=== PATIENT | male | born 1945 | race Caucasian/White ===

== ENCOUNTER → 2022-10-10 | Outpatient (CLI) | payer OTHER, MEDICARE, SELFPAY ==
[2022-10-10 09:24] LABS: Absolute Lymphocyte Count 1.36 X10^3/uL (0.83-4.51); Absolute Neutrophil Count 5.4 X10^3/uL (2.0-7.7); Basophil# 0.04 X10^3/uL; Basophil% 0.5 % (0-1); Eosinophil# 0.13 X10^3/uL; Eosinophils% 1.7 % (0-5); Hematocrit 50.8 % (40-54); Hemoglobin 16.8 g/dL (13.0-16.5); Lymphocyte # 1.36 X10^3/ul (0.83-4.51); Lymphocyte % 17.5 % (19-41); Mean Corp Hgb Conc 33.1 g/dL (32-36); Mean Corpuscular Hgb 31.2 pg (27.0-32.0); Mean Corpuscular Volume 94.2 fL (80-94); Mean Platelet Vol. 8.9 fl (6.2-12.0); Monocyte# 0.83 X10^3/uL; Monocyte% 10.7 % (0-10); NRBC Flagged by Analyzer 0 % (0-5); Neutrophil # 5.37 X10^3/uL (2.7-7.7); Platelet Count 230 K/mm3 (150-450); RBC Distribution Width SD 55.8 fl (35.1-43.9); Red Blood Count 5.39 M/mm3 (4.6-6.2); White Blood Count 7.8 K/mm3 (4.4-11.0)
[2022-10-10 09:39] LABS: ALB/GLOB Ratio 1.2 RATIO (0.9-2.4); AST(SGOT) 22 U/L (15-37); Alanine Aminotransfer ALT/SGPT 24 U/L (16-61); Albumin, Serum 3.8 g/dL (3.2-5.0); Alkaline Phosphatase 53 U/L (45-117); Amylase 31 U/L (25-115); Anion Gap 3 (5-15); BUN 15 mg/dL (7-18); BUN/Creat Ratio 20.2 RATIO (10-20); Calcium,Total 8.9 mg/dL (8.5-10.1); Chloride 108 mmol/L (98-107); Creatinine, Serum 0.74 mg/dL (0.70-1.30); EST Glomerular Filtration Rate 109 mL/min (>60); Est Glom Filt Rate - Afr Amer 132 mL/min (>60); Globulin 3.3 g/dL (2.2-4.2); Glucose 107 mg/dL (74-106); Lipase 127 U/L (73-393); Potassium 3.9 mmol/L (3.5-5.1); Protein, Total 7.1 g/dL (6.4-8.2); Sodium Level 141 mmol/L (136-145)
== END | disposition home or self-care (01) ==
LOC: PAVLAB 09:14
PROVIDERS: PCP Physician Assistant; Referring Provider Surgery; Visit Provider Surgery
DX: K83.8 Other specified diseases of biliary tract (principal)
CPT/HCPCS: 36415; 80053; 82150; 83690; 85025

== ENCOUNTER → 2022-10-21 | Outpatient (CLI) | payer OTHER, MEDICARE, SELFPAY ==
--- NOTE | 2022-10-21 07:04 | MRI_ITS ---
Examination: MRI and MRCP. INDICATION: Left side pain. TECHNIQUE: Multiplanar multisequence MRI of the abdomen was obtained. 3-D postprocessing and MRCP was obtained as well. COMPARISON: CT dated September 20, 2022 FINDINGS: Within the left hepatic lobe there is a well-circumscribed 4.4 x 3.6 cm T1 hypointense and T2 hyperintense round focus within appearance suggestive of a cyst. There is intra and extrahepatic ductal dilatation. Within the common bile duct there is a round T2 hypointense filling defect measuring up to 11.0 x 19.1 mm in diameter. The gallbladder appears contracted with round filling defects consistent with cholelithiasis. The pancreas is within normal limits. There is a 2.5 x 2.3 x 2.1 cm T1 and T2 isointense round focus within the left abdomen caudal to the pancreas, possibly within the mesentery (image 13 series 6 and image 10 series 8). The adrenal glands are grossly unremarkable. There is a left renal cyst. The visualized stomach and loops of small bowel are within normal limits. There are diverticula arising from the visualized colon. There are degenerative changes of the lumbar spine. MRI/MRCP Abdomen without Contrast IMPRESSION: Choledocholithiasis. Cholelithiasis. Hepatic cyst Indeterminate 2.5 x 2.2 x 2.1 cm round soft tissue focus within the mesentery left of midline may reflect a splenule, cannot exclude an enlarged lymph node. Electronically Signed: Drea Wilhelm MD at 8:08 EDT ,
== END | disposition home or self-care (01) ==
PROVIDERS: PCP Physician Assistant; Referring Provider Surgery; Visit Provider Surgery
DX: K83.8 Other specified diseases of biliary tract (principal)
CPT/HCPCS: 74181

== ENCOUNTER 2022-10-31 13:09 | Day surgery (SDC) | payer OTHER, MEDICARE, SELFPAY ==
--- NOTE | 2022-10-31 13:30 | EKG12_ITS ---
Test Reason : PRE OP Blood Pressure : / mmHG Vent. Rate : 068 BPM Atrial Rate : 068 BPM P-R Int : 174 ms QRS Dur : 156 ms QT Int : 458 ms P-R-T Axes : 045 -78 039 degrees QTc Int : 487 ms Sinus rhythm with marked sinus arrhythmia Right bundle branch block Left anterior fascicular block Bifascicular block Abnormal ECG No previous ECGs available Confirmed by JIMBO FRENCH, DICK ([id number]), advertising editor EVELINE ARCE ([id number]) on 11/01/2022 1:25:30 PM Referred By: Murphy Rowan Confirmed By:DICK CHOI MD
[2022-10-31 13:56] VITALS: BP 129/77; PULSE 65; RESP 16; TEMP 36.2; O2SAT 95; BMI 23.4
[2022-10-31] MEDS: Lactated Ringers 1,000 ML 15 ML IV (13:59)
--- NOTE | 2022-10-31 14:20 | HP.PCM_ITS ---
History and Physical Date of Admission: 10/31/22 Intake Intake Visit Reasons:?discuss ERCP Chief Complaint: discuss ERCP Is patient in pain?: No Allergies No Known Allergies Allergy (Unverified 10/23/22 14:22) Medications NK? 10/23/22 [History] PFSH Social History?(Updated 10/10/22 @ 08:44 by Kortney Friday) Smoking Status:? Current every day smoker alcohol intake:? current substance use type:? does not use HPI HPI HPI: Patient is a 76-year-old male here for choledocholithiasis.? He was having abdominal pain which led to a CT scan which showed a possible dilation and an MRCP revealed a large stone in the common bile duct.? The patient's LFTs are normal. ROS General General: No weight change, appetite, fatigue, colon cancer, breast cancer or weakness HEENT HEENT: No difficulty swallowing, eye injury, eye surgery, swollen glands or hoarseness Endo Endocrine: No thyroid disease, diabetes mellitus, thyroid cancer, Hair loss, heat intolerance or cold intolerance Skin Skin: No rash or changing moles Breast Breast: No left breast lump, right breast lump, nipple discharge, breast pain, abnormal mammogram, abnormal US or breast enlargement Musc Musculoskeletal: No back problems, arthritis, rheumatoid arthritis, gout or joint pain Cardio Cardiovascular: No murmur, pacemaker, heart disease, atrial fibrillation, high blood pressure, heart attack, heart stent, palpitations, shortness of breat with exertion or chest pain Psych Psychiatric: No depression, anxiety or hearing voices Resp Respiratory: No shortness of breath, No sleep apnea, No cough, No COPD, No asthma, No emphysema and No wheezing Gastro Gastrointestinal: Yes abdominal pain, No nausea or vomiting, No diarrhea, No constipation, No blood in stool, No acid reflux, No hemorrhoids, No ulcers, Yes gallbladder problem and No black,tarry stools Pasquale Hematologic: No blood thinners, No blood disorders, No bleeding, No anemia and No blood clots Neuro Neurologic: No system reviewed and no additional complaints, except as documented, No as per HPI, No abnormal gait, No abnormal hearing, No abnormal movements, No abnormal speech, No behavioral changes, No burning sensations, No confusion, No convulsions, No disequilibrium, No dizziness, No localized weakness, No frequent falls, No headache(s), No lack of coordination, No loss of vision, No memory loss, No numbness, No other visual disturbances, No radicular pain, No restless legs, No sensory deficit, No syncope, No tingling, No tremor(s), No weakness and No other Exam Const General: cooperative Orientation: alert and oriented x3 HENMT Head: normal to inspection Neck Neck: normal visual inspection and full ROM Chest Chest palpation & inspection: normal inspection of the chest Resp Effort & Inspection: normal respiratory effort Auscultation: clear to auscultation bilaterally Cardio Rate: regular rate Rhythm: regular rhythm GI Inspection: non-distended Palpation: soft and nontender Skin General: no rashes or lesions noted Neuro General: patient alert and patient oriented x3 Extrem General: full ROM Psych Appearance: grossly normal Mental Status: mental status grossly normal Assessment and Plan Assessment and Plan (1) Choledocholithiasis: ?Status:?Acute ?Plan: Patient had an MRCP that showed choledocholithiasis.? I discussed ERCP with him in detail.? I discussed the risks including but not limited to bleeding, infection, perforation of the bile duct or bowel, pancreatitis.? I also discussed the possibility of placing a stent about was unable to remove the stone.? I discussed possible transfer to tertiary center if I was unable to remove the stone or place a stent.? Patient understands the risks and is when to proceed with ERCP. Murphy Rowan MD Pager: [facility] [address] [place] [address], [address] [place] [phone] Office: I have examined the patient and the H&P has been reviewed. There are no clinical changes since date of exam.
[2022-10-31] MEDS: Cefotetan 2 GM in 0.9% NS 100 ML IV (15:24)
--- NOTE | 2022-10-31 15:33 | RAD_ITS ---
HISTORY: PAIN COMPARISON: MRCP October 21, 2022. CT 09/20/2022 TECHNIQUE: A total of 2 fluoroscopic images were saved without a radiologist present. FINDINGS: Images demonstrate oval filling defect within the common bile duct on first image correlating with stone on MRCP.. Stent placement noted on second image. Total fluoroscopy time: 59 seconds Cumulative air kerma: 82.91 mGy RAD/ERCP Biliary Only IMPRESSION: Fluoroscopic assistance for ERCP. Biliary ductal dilatation with oval filling defect on initial image. Please see operative report for additional information. Electronically Signed: Francisco Epstein MD at 19:22 EDT ,
--- NOTE | 2022-10-31 16:07 | OP.ERCP_ITS ---
Patient Name: Kan Wiggins Procedure Date: 10/31/2022 2:53 PM Date of : 1945 Age: 76 Procedure: ERCP Indications: Bile duct stone(s) Providers: Murphy Rowan MD Medicines: General Anesthesia Patient Profile: This is a 76 year old male. Refer to note in patient chart for documentation of history and physical. Complications: No immediate complications. Estimated blood loss: Minimal. Procedure: Pre-Anesthesia Assessment: - Prior to the procedure, a History and Physical was performed, and patient medications and allergies were reviewed. The patient's tolerance of previous anesthesia was also reviewed. The risks and benefits of the procedure and the sedation options and risks were discussed with the patient. All questions were answered, and informed consent was obtained. Prior Anticoagulants: The patient has taken no previous anticoagulant or antiplatelet agents. After reviewing the risks and benefits, the patient was deemed in satisfactory condition to undergo the procedure. After obtaining informed consent, the scope was passed under direct vision. Throughout the procedure, the patient's blood pressure, pulse, and oxygen saturations were monitored continuously. The Duodenoscope was introduced through the mouth, and advanced to the duodenum and used to inject contrast into the bile duct. The ERCP was accomplished without difficulty. The patient tolerated the procedure well. Scope In: 3:36:20 PM Scope Out: 3:59:30 PM Total Procedure Duration Time 0 hours 23 minutes 10 seconds Findings: A 0.035 inch x 260 cm straight Dreamwire was passed into the biliary tree. The sphincterotome was passed over the guidewire and the bile duct was then deeply cannulated. Contrast was injected. I personally interpreted the bile duct images. There was brisk flow of contrast through the ducts. Image quality was excellent. The lower third of the main bile duct contained filling defect(s) thought to be a stone. Biliary sphincterotomy was made with a monofilament sphincterotome using ERBE electrocautery. There was no post-sphincterotomy bleeding. To discover objects, the biliary tree was swept with a 15 mm balloon starting at the bifurcation. No stones were removed. One stone remained. The biliary tree was swept with a basket starting at the bifurcation. Stone was unable to be removed or crushed. One 10 Fr by 5 cm plastic stent with a single external flap and a single internal flap was placed into the common bile duct. Bile flowed through the stent. The stent was in good position. The endoscope was withdrawn from the patient. Impression: - A filling defect consistent with a stone was seen on the cholangiogram. - Choledocholithiasis was found. Partial removal was accomplished with biliary sphincterotomy; a stent was inserted. - A biliary sphincterotomy was performed. - The biliary tree was swept. - The biliary tree was swept and nothing was found. - One plastic stent was placed into the common bile duct. Recommendation: - Discharge patient to home (ambulatory). - Resume previous diet. - Return to my office in 2 weeks. Procedure Code(s): --- Professional --- 72183, Endoscopic retrograde cholangiopancreatography (ERCP); with placement of endoscopic stent into biliary or pancreatic duct, including pre- and post-dilation and guide wire passage, when performed, including sphincterotomy, when performed, each stent Diagnosis Code(s): --- Professional --- K80.50, Calculus of bile duct without cholangitis or cholecystitis without obstruction R93.2, Abnormal findings on diagnostic imaging of liver and biliary tract CPT copyright 2017 [employer]. All rights reserved. The codes documented in this report are preliminary and upon chemistry physics teacher review may be revised to meet current compliance requirements. Murphy Rowan MD 10/31/2022 4:06:39 PM This report has been signed electronically. Number of Addenda: 0 Note Initiated On: 10/31/2022 2:53 PM
--- NOTE | 2022-10-31 16:07 | OP.CCLET_ITS ---
10/31/2022 Arpit Morales Re : ERCP procedure for Kan Wiggins Dear Mir This procedure was performed on October. My impressions and recommendations are as follows: Impressions : - A filling defect consistent with a stone was seen on the cholangiogram. - Choledocholithiasis was found. Partial removal was accomplished with biliary sphincterotomy; a stent was inserted. - A biliary sphincterotomy was performed. - The biliary tree was swept. - The biliary tree was swept and nothing was found. - One plastic stent was placed into the common bile duct. Recommendations : - Discharge patient to home (ambulatory). - Resume previous diet. - Return to my office in 2 weeks. My findings are described in the full procedure note, which is enclosed. If I can be of further assistance, please feel free to contact me at Doctor phone number(s): , Work: . Sincerely, Murphy oRwan MD 10/31/2022 4:06:39 PM This report has been signed electronically.
[2022-10-31 16:14] VITALS: BP 123/76; BP 129/77; PULSE 79; RESP 16; TEMP 36.3; O2SAT 96
[2022-10-31 16:30] VITALS: BP 129/77; BP 132/67; PULSE 72; RESP 16; O2SAT 94
[2022-10-31 16:36] VITALS: BP 129/77; BP 130/76; PULSE 69; RESP 16; O2SAT 94
[2022-10-31 16:52] VITALS: BP 129/77
== END 2022-10-31 17:00 | disposition home or self-care (01) ==
LOC: EN 13:13 → AC 13:13
PROVIDERS: PCP Physician Assistant; Referring Provider Surgery; Visit Provider Surgery
PROC: (CPT 43260; principal; 2022-10-31 14:10)
DX: K80.50 Calculus of bile duct without cholangitis or cholecystitis without obstruction (principal); F17.210 Nicotine dependence, cigarettes, uncomplicated
CPT/HCPCS: 43274; 74328; 76000; 93005; J7120; J2405

== ENCOUNTER 2022-11-15 06:18 | Day surgery (SDC) | payer OTHER, MEDICARE, SELFPAY ==
[2022-11-15] MEDS: Lactated Ringers 1,000 ML 15 ML IV (06:48)
[2022-11-15 06:53] VITALS: BP 123/76; PULSE 87; RESP 17; TEMP 36.6; O2SAT 95; BMI 23.1
--- NOTE | 2022-11-15 06:53 | EKG12_ITS ---
Test Reason : PRE OP Blood Pressure : / mmHG Vent. Rate : 073 BPM Atrial Rate : 073 BPM P-R Int : 180 ms QRS Dur : 162 ms QT Int : 458 ms P-R-T Axes : 038 -73 019 degrees QTc Int : 504 ms Sinus rhythm with marked sinus arrhythmia Right bundle branch block Left anterior fascicular block Bifascicular block Abnormal ECG When compared with ECG of 31-OCT-2022 13:34, No significant change was found Confirmed by ISABEL GUARDADO ([id number]), editor continuity and script EVELINE ARCE ([id number]) on 11/20/2022 1:41:13 PM Referred By: Manuel Ibarra Confirmed By:ISABEL GUARDADO
--- NOTE | 2022-11-15 06:53 | HP.PCM_ITS ---
History and Physical Date of Admission: 11/15/22 Allergies No Known Allergies Allergy (Verified 10/31/22 13:54) PFS Medical History? History of hiatal hernia History of steroid therapy Smoker Wears dentures Wears glasses Social History? Smoking Status:? Current every day smoker tobacco type: cigarettes alcohol intake:? current substance use type:? does not use HPI HPI HPI: 76-year-old gentleman.? I had an opportunity to meet him on October 10, 2022.? He was having left flank pain.? To help evaluate him on October 21, 2022 to get an MRCP on him.? That demonstrated intra and exophytic ductal dilatation with a 11 x 19.1 mm common bile duct stone.? Cholelithiasis also identified.? There is an hepatic cyst.? There is an indeterminant 2.5 x 2.2 x 2.1 cm round soft tissue focus within the mesentery left of the midline may reflect a splenule cannot exclude an isolated lymph node.? Subsequently at my request on October 31, 2022 the patient underwent an ERCP per Dr. Murphy Rowan.? Choledocholithiasis was indeed fine.? A large stone was identified.? Could not be fully removed.? A stent was left in position. When the patient initially presented to me he was complaining of the left leg pain.? Is not clear to me that the common bile duct stone is etiologic.? On CT scan the has a splenule in the mesentery I do not believe that that is the source of his discomfort either. My previous notes reflect the following. No Known Allergies Allergy (Unverified 10/10/22 08:59) [facility] Social History Smoking Status:? Current every day smoker alcohol intake:? current substance use type:? does not use HPI HPI HPI: 76-year-old gentleman who is being referred by Terence Hester PA-C for surgical consultation regarding abdominal pain and distention.? Written copy of my surgical consult recommendations will return to him.? In addition the patient has been having problems with an acute left flank pain.? Pain is said to be 9 out of 10.? At [facility] on September 20, [address] the patient had a CT scan the abdomen pelvis with contrast.? There is a cyst on the left lobe of the liver measuring 3.5 x 5 cm.? The right lobe has a 0.5 cm item too small to characterize.? The gallbladder is felt to possibly have a radiolucent stone.? The common bile duct is elevated in diameter to 1.4 cm.? There is a left adrenal nodule measuring 2.7 x 2.3 cm.? This is felt to be consistent with an adenoma.? There are atherosclerotic changes of the abdominal aorta.Diverticulosis of the descending and sigmoid colon noted.? Fat-containing umbilical hernia.? Fat- containing left inguinal hernia.? Prostate enlargement is noted.? There is posterior disc bulging at L3-4 and L4-5.? There is partially imaged lipoma in the musculature of the right hemipelvis and a lipoma in the musculature of the left gluteus myles muscle.? Subsequently on October 03, 2022 the patient had a right upper quadrant ultrasound.? A 2.6 cm stone is seen in the gallbladder.? The common bile duct measures 13 mm.? Medical renal disease is suspected.I have personally reviewed the images.? On CT the left inguinal hernia appears to conta in fat and not bowel.? The pancreatic duct does not appear to be enlarged and the pancreas self does not appear to be large.? I am not seeing a mass in the head of the pancreas.? The common bile duct is certainly dilated. The patient states that when he stands that he notices bulging in the left mid abdomen to flank area.? When he walks he walks stooped over and this can cause a sharp pain but he can resolve it by sitting.? He denies fever or chills or sweats or nausea or vomiting or jaundice or change in urine or stool color or bright red blood per rectum or melena. He has been almost a lifelong cigarette smoker and he continues to smoke at the rate at least a pack per day. He claims he has had no history of weight loss.? No history of DVT.? He denies myocardial infarction or stroke. He has never had a colonoscopy.? He denies any family history of colon cancer. When he talks about the pain he points to the left mid abdomen slightly flank area to an area of diffuse bulging and he also points to the right lower quadrant area that has some very slight bulging. ROS General General: No weight change, appetite, fatigue, colon cancer, breast cancer or weakness HEENT HEENT: No difficulty swallowing, eye injury, eye surgery, swollen glands or hoarseness Endo Endocrine: No thyroid disease, diabetes mellitus, thyroid cancer, Hair loss, heat intolerance or cold intolerance Skin Skin: No rash or changing moles Breast Breast: No left breast lump, right breast lump, nipple discharge, breast pain, abnormal mammogram, abnormal US or breast enlargement Musc Musculoskeletal: No back problems, arthritis, rheumatoid arthritis, gout or joint pain Cardio Cardiovascular: No murmur, pacemaker, heart disease, atrial fibrillation, high blood pressure, heart attack, heart stent, palpitations, shortness of breat with exertion or chest pain Psych Psychiatric: No depression, anxiety or hearing voices Resp Respiratory: No shortness of breath, No sleep apnea, No cough, No COPD, No asthma, No emphysema and No wheezing Gastro Gastrointestinal: Yes abdominal pain, No nausea or vomiting, No diarrhea, No constipation, No blood in stool, No acid reflux, No hemorrhoids, No ulcers, Yes gallbladder problem and No black,tarry stools Pasquale Hematologic: No blood thinners, No blood disorders, No bleeding, No anemia and No blood clots Neuro Neurologic: No system reviewed and no additional complaints, except as documented, No as per HPI, No abnormal gait, No abnormal hearing, No abnormal movements, No abnormal speech, No behavioral changes, No burning sensations, No confusion, No convulsions, No disequilibrium, No dizziness, No localized weakness, No frequent falls, No headache(s), No lack of coordination, No loss of vision, No memory loss, No numbness, No other visual disturbances, No radicular pain, No restless legs, No sensory deficit, No syncope, No tingling, No tremor(s), No weakness and No other Exam Const General: cooperative, comfortable and no acute distress Nutritional Appearance: average body habitus Orientation: alert and awake Other: Heavy odor of tobacco HENMT Other: Tobacco staining of his mustache Eyes General: appearance normal, both eyes and all related structures Neck Other: Kyphosis noted Chest Other: Thoracic kyphosis noted, increased anterior posterior diameter Resp Auscultation: clear to auscultation bilaterally Other: Diminished respiratory excursion, clear Cardio Rate: regular rate Rhythm: regular rhythm Other: I do not detect a cardiac murmur GI Other: Patient was examined upright and supine, slight bulging of the left mid abdomen with a slight pendulous abdomen, no focal mass, no focal tenderness, bowel sounds present unremarkable, no hepatomegaly, no tenderness.? No rebound no guarding Other: Nontender left groin hernia detected but not the area of patient concern Skin General: no rashes or lesions noted Neuro General: patient alert, patient awake and patient oriented x3 Extrem General: no calf tenderness Psych Appearance: grossly normal Assessment and Plan Assessment and Plan (1) Cholelithiasis with chronic cholecystitis: ?Status:?Chronic (2) Liver cyst: ?Status:?Acute (3) Common bile duct dilatation: ?Status:?Acute (4) Left flank pain: ?Status:?Acute (5) Inguinal hernia of left side without obstruction or gangrene: ?Status:?Acute (6) Abdominal pain: ? ? ? Orders: Orders MRCP Abdomen without Contrast? Today? K83.8 - Other specified diseases of biliary tract ? Amylase? Today? K83.8 - Other specified diseases of biliary tract ? Comprehensive Metabolic Profil? Today? K83.8 - Other specified diseases of biliary tract ? Lipase? Today? K83.8 - Other specified diseases of biliary tract ? CBC W/Diff, Automated? Today? K83.8 - Other specified diseases of biliary tract ? Plan Regarding the patient's left mid abdominal flank pain and right lower quadrant pain.? This may be related to his bulging disc disease.? Seems to be worse when he is walking and his states that he ayanna over when he walks and this is fair amount of lifting.? The patient states that simple sitting relieves the pain so this makes it less likely as being something internal.? Although the patient has a left inguinal hernia it is not this area that seems to be of concern I do not believe that the left lobe liver cyst is causing any symptomatology.? It should not require any intervention at this time. The patient has never had a colonoscopy.? Clinically he was not tender on the left side but with left abdominal pain I do believe that he should have a colonoscopy with possible biopsy or polypectomy. Regarding the patient's common bile duct dilatation there is a possibility that he has an ampullary tumor.? I do believe that we should plan on a esophagogastroduodenoscopy and that can be done at the same setting as the colonoscopy Regarding the patient's significant bile duct dilatation I am not personally I did detecting a stone either on the CT or ultrasound in the distal common bile duct.? I am not seeing a pancreatic mass.? The dilatation though is quite notable.? I do recommend that we obtain pertinent laboratory as well as an MRCP. Then we will use this information as to whether I will personally pursue the combined upper and lower endoscopy or whether I think that bile duct intervention will be required to where we might involve Dr. Valadez Friend gastroenterology. Finally the patient has sizable gallstone and I do recommend future laparo scopically cystectomy with selective cholangiograms.? I believe however that the common bile duct dilatation needs to be addressed prior to immediately proceeding to cholecystectomy. He has had an opportunity to ask and have questions answered.? We will obtain laboratory and MRCP and then provide the patient further recommendations and scheduling subsequently. I very much appreciate the kind opportunity of assisting with the surgical care ROS General General: No weight change, appetite, fatigue, colon cancer, breast cancer or weakness HEENT HEENT: No difficulty swallowing, eye injury, eye surgery, swollen glands or hoarseness Endo Endocrine: No thyroid disease, diabetes mellitus, thyroid cancer, Hair loss, heat intolerance or cold intolerance Skin Skin: No rash or changing moles Breast Breast: No left breast lump, right breast lump, nipple discharge, breast pain, abnormal mammogram, abnormal US or breast enlargement Musc Musculoskeletal: No back problems, arthritis, rheumatoid arthritis, gout or joint pain Cardio Cardiovascular: No murmur, pacemaker, heart disease, atrial fibrillation, high blood pressure, heart attack, heart stent, palpitations, shortness of breat with exertion or chest pain Psych Psychiatric: No depression, anxiety or hearing voices Resp Respiratory: No shortness of breath, No sleep apnea, No cough, No COPD, No asthma, No emphysema and No wheezing Gastro Gastrointestinal: No abdominal pain, No nausea or vomiting, No diarrhea, No constipation, No blood in stool, No acid reflux, No hemorrhoids, No ulcers, No gallbladder problem and No black,tarry stools Pasquale Hematologic: No blood thinners, No blood disorders, No bleeding, No anemia and No blood clots Neuro Neurologic: No system reviewed and no additional complaints, except as documented, No as per HPI, No abnormal gait, No abnormal hearing, No abnormal movements, No abnormal speech, No behavioral changes, No burning sensations, No confusion, No convulsions, No disequilibrium, No dizziness, No localized weakness, No frequent falls, No headache(s), No lack of coordination, No loss of vision, No memory loss, No numbness, No other visual disturbances, No radicular pain, No restless legs, No sensory deficit, No syncope, No tingling, No tremor(s), No weakness and No other Assessment and Plan Assessment and Plan (1) Cholelithiasis with chronic cholecystitis: ?Status:?Chronic (2) Choledocholithiasis: ?Status:?Acute (3) Left flank pain: ?Status:?Acute ?Plan: I am proposing for him a colonoscopy with possible biopsy or polypectomy as indicated.? He is aware of the technique, benefit, risk, alternatives.? We will try to expedite his care. I am proposing for him a laparoscopic cholecystectomy with cholangiograms.? He has a biliary stent in place.? He will need to have additional future endoscopic treatment of a very large stone. He is also aware of the technique benefit risk complication alternatives.? In the interim we will place him on continued light duty until we can solve the above issues. Copy:MARCELINA Morales M.D., F.A.C.S. Patient presents for screening colonoscopy today. He has had an opportunity to ask and have questions answered. We will proceed as noted. Manuel Ibarra M.D., F.A.C.S.
--- NOTE | 2022-11-15 07:30 | COLBX_PTH ---
PATIENT: JAZ VALENTINE LOC: EN U#:[id number] AGE/SX: 76/M ROOM: RE11/15/[address]: Dr. Manuel Ibarra MD : 1945 BED: DIS: 11/15/2022 SPEC #: [id number] RECD: 11/15/22 11:51 STATUS: BALJINDER EULOGIO #: [id number] CLARITZA: 11/15/22 07:[address]: Manuel Ibarra DEPT: SURGICAL PATHOLOGY RECD BY: Cora Chester ENTERED: 11/15/22 13:43 SP TYPE: COLON BX OTHR DR: MARCELINA Morales Tissues: A - Cecum, NOS B - Cecum, NOS C - Transverse colon D - Descending colon E - Sigmoid colon biopsy F - Sigmoid colon biopsy Procedures: Surgery Specimen Level IV HEADER OPERATION: Colonoscopy with polypectomy (MAC) PRE-OP DIAGNOSIS: Common bile duct dilatation, left flank pain, inguinal hernia of left side TISSUE SUBMITTED: A ? Cecum polyp 3 mm, B - Cecum polyp 3 mm, C ? Mid transverse colon polyp 6 mm, D ? Descending colon polyp 11 mm, E ? Sigmoid colon poly 7 mm, F ? Distal sigmoid colon polyp MICROSCOPIC DIAGNOSIS A. Cecum polyp, polypectomy: Tubular adenoma. B. Cecum polyp, polypectomy: Fragments of colonic mucosa, no pathologic diagnosis. C. Mid sigmoid colon polyp, polypectomy: Fragments of colonic mucosa with focal adenomatous changes. Fragments of fecal material. D. Descending colon polyp, polypectomy: Fragments of tubular adenoma. Hyperplastic polyp. E. Sigmoid colon polyp, polypectomy: Fragments of tubular adenoma. F. Distal sigmoid colon polyp, polypectomy. Fragments of hyperplastic polyp. SJ:agnieszka 11/18/2022 MICROSCOPIC DESCRIPTION Slides are reviewed. GROSS DESCRIPTION A - Received in fixative is one container labeled with the patient's name and designated cecum polyp 3 mm. The specimen consists of one irregular fragment of light coleman soft tissue that measures 0.4 x 0.4 x 0.1 cm. The specimen is totally submitted in one cassette. B - Received in fixative is one container labeled with the patient's name and designated cecum polyp 3 mm. The specimen consists of two irregular fragments of light coleman soft tissue that in aggregate measure 0.4 x 0.3 x 0.1 cm. The specimen is totally submitted in one cassette. C - Received in fixative is one container labeled with the patient's name and designated mid transverse colon polyp 6 mm. The specimen consists of multiple irregular fragments of light coleman soft tissue mixed with fecal material that in aggregate measure 1.5 x 1.0 x 0.1 cm. The specimen is totally submitted in one cassette. D - Received in fixative is one container labeled with the patient's name and designated descending colon polyp 11 mm. The specimen consists of multiple irregular fragments of light coleman soft tissue mixed with fecal material that in aggregate measure 2.5 x 1.0 x 0.1 cm. The specimen is totally submitted in one cassette. E - Received in fixative is one container labeled with the patient's name and designated sigmoid colon polyp 7 mm. The specimen consists of multiple irregular fragments of light coleman soft tissue that in aggregate measure 0.6 x 0.6 x 0.1 cm. The specimen is totally submitted in one cassette. F - Received in fixative is one container labeled with the patient's name and designated distal sigmoid colon polyp. The specimen consists of multiple irregular fragments of light coleman soft tissue that in aggregate measure 1.0 x 0.3 x 0.1 cm. The specimen is totally submitted in one cassette. / SJ:rg 11/15/2022 TC:1 CPT: 72593 x6
[2022-11-15 08:16] VITALS: BP 123/76; BP 92/55; PULSE 75; RESP 16; TEMP 36.2; O2SAT 94
[2022-11-15 08:21] VITALS: BP 101/53; BP 123/76; PULSE 71; RESP 16; O2SAT 94
--- NOTE | 2022-11-15 08:21 | OP.CCLET_ITS ---
11/15/2022 Arpit Morales Re : Colonoscopy procedure for Kan Wiggins Dear Mir This procedure was performed on Tuesday, November 15, 2022. My impressions and recommendations are as follows: Impressions : - Non-thrombosed internal hemorrhoids and internal hemorrhoids that prolapse with straining, but spontaneously regress to the resting position (Grade II) found on digital rectal exam. - One 3 mm polyp in the cecum, removed with a cold biopsy forceps. Resected and retrieved. - One 3 mm polyp in the cecum, removed with a cold biopsy forceps. Resected and retrieved. - One 6 mm polyp in the mid transverse colon, removed with a hot snare. Resected and retrieved. - One 6 mm polyp in the mid transverse colon, removed with a hot snare. Resected and retrieved. - One 11 mm polyp in the mid descending colon, removed with a hot snare. Resected and retrieved. Clip was placed. - One 7 mm polyp in the mid sigmoid colon, removed with a cold biopsy forceps. Resected and retrieved. - Two 3 mm polyps in the distal sigmoid colon, removed with a cold biopsy forceps. Resected and retrieved. - Diverticulosis in the entire examined colon. Recommendations : - Discharge patient to home. - Resume previous diet. - Continue present medications. - Repeat colonoscopy in 1 year for surveillance. - Telephone my office for pathology results in 1 week. My findings are described in the full procedure note, which is enclosed. If I can be of further assistance, please feel free to contact me at Doctor phone number(s): Work: . Sincerely, Manuel Ibarra MD 11/15/2022 8:20:21 AM This report has been signed electronically.
--- NOTE | 2022-11-15 08:21 | OP.COLON_ITS ---
Patient Name: Kan Wiggins Procedure Date: 11/15/2022 7:30 AM Date of : 1945 Age: 76 Procedure: Colonoscopy Indications: Screening for colorectal malignant neoplasm Providers: Manuel Ibarra MD Referring MD: Manuel Ibarra MD Medicines: See the Anesthesia note for documentation of the administered medications Patient Profile: Last Colonoscopy: none. The patient's first colonoscopy is today. Complications: No immediate complications. Procedure: Pre-Anesthesia Assessment: - Prior to the procedure, a History and Physical was performed, and patient medications and allergies were reviewed. The patient's tolerance of previous anesthesia was also reviewed. The risks and benefits of the procedure and the sedation options and risks were discussed with the patient. All questions were answered, and informed consent was obtained. Prior Anticoagulants: The patient has taken no previous anticoagulant or antiplatelet agents. ASA Grade Assessment: II - A patient with mild systemic disease. After reviewing the risks and benefits, the patient was deemed in satisfactory condition to undergo the procedure. After I obtained informed consent, the scope was passed under direct vision. Throughout the procedure, the patient's blood pressure, pulse, and oxygen saturations were monitored continuously. The colonoscope was introduced through the anus and advanced to the cecum, identified by appendiceal orifice and ileocecal valve. The colonoscopy was somewhat difficult due to multiple polyps. [Solution]. The quality of the bowel preparation was good. The ileocecal valve and the appendiceal orifice were photographed. Scope In: 7:39:30 AM Scope Withdrawal Time 0 hours 27 minutes 2 seconds Scope Out: 8:11:27 AM Total Procedure Duration Time 0 hours 31 minutes 57 seconds Findings: The digital rectal exam findings include non-thrombosed internal hemorrhoids and internal hemorrhoids that prolapse with straining, but spontaneously regress to the resting position (Grade II). Pertinent negatives include normal prostate (size, shape, and consistency). A 3 mm polyp was found in the cecum. The polyp was sessile. The polyp was removed with a cold biopsy forceps. Resection and retrieval were complete. A 3 mm polyp was found in the cecum. The polyp was sessile. The polyp was removed with a cold biopsy forceps. Resection and retrieval were complete. A 6 mm polyp was found in the mid transverse colon. The polyp was sessile. The polyp was removed with a hot snare. Resection and retrieval were complete. A 6 mm polyp was found in the mid transverse colon. The polyp was sessile. The polyp was removed with a hot snare. Resection and retrieval were complete. A 11 mm polyp was found in the mid descending colon. The polyp was sessile. The polyp was removed with a hot snare. Resection and retrieval were complete. To prevent bleeding post-intervention, one hemostatic clip was successfully placed. There was no bleeding at the end of the procedure. A 7 mm polyp was found in the mid sigmoid colon. The polyp was sessile. The polyp was removed with a cold biopsy forceps. Resection and retrieval were complete. Two sessile polyps were found in the distal sigmoid colon. The polyps were 3 mm in size. These polyps were removed with a cold biopsy forceps. Resection and retrieval were complete. Multiple diverticula were found in the entire colon. Impression: - Non-thrombosed internal hemorrhoids and internal hemorrhoids that prolapse with straining, but spontaneously regress to the resting position (Grade II) found on digital rectal exam. - One 3 mm polyp in the cecum, removed with a cold biopsy forceps. Resected and retrieved. - One 3 mm polyp in the cecum, removed with a cold biopsy forceps. Resected and retrieved. - One 6 mm polyp in the mid transverse colon, removed with a hot snare. Resected and retrieved. - One 6 mm polyp in the mid transverse colon, removed with a hot snare. Resected and retrieved. - One 11 mm polyp in the mid descending colon, removed with a hot snare. Resected and retrieved. Clip was placed. - One 7 mm polyp in the mid sigmoid colon, removed with a cold biopsy forceps. Resected and retrieved. - Two 3 mm polyps in the distal sigmoid colon, removed with a cold biopsy forceps. Resected and retrieved. - Diverticulosis in the entire examined colon. Recommendation: - Discharge patient to home. - Resume previous diet. - Continue present medications. - Repeat colonoscopy in 1 year for surveillance. - Telephone my office for pathology results in 1 week. Procedure Code(s): --- Professional --- 85410, Colonoscopy, flexible; with removal of tumor(s), polyp(s), or other lesion(s) by snare technique 92243, 59, Colonoscopy, flexible; with biopsy, single or multiple Diagnosis Code(s): --- Professional --- Z12.11, Encounter for screening for malignant neoplasm of colon K64.1, Second degree hemorrhoids D12.0, Benign neoplasm of cecum D12.3, Benign neoplasm of transverse colon (hepatic flexure or splenic flexure) D12.4, Benign neoplasm of descending colon D12.5, Benign neoplasm of sigmoid colon K57.30, Diverticulosis of large intestine without perforation or abscess without bleeding CPT copyright 2017 [employer]. All rights reserved. The codes documented in this report are preliminary and upon account analyst review may be revised to meet current compliance requirements. Manuel Ibarra MD 11/15/2022 8:20:21 AM This report has been signed electronically. Number of Addenda: 0 Note Initiated On: 11/15/2022 7:30 AM
[2022-11-15 08:25] VITALS: BP 111/77; BP 123/76; PULSE 67; RESP 16; O2SAT 95
[2022-11-15 08:30] VITALS: BP 109/65; BP 123/76; PULSE 68; RESP 16; TEMP 36.4; O2SAT 94
[2022-11-15 08:46] VITALS: BP 123/76
== END 2022-11-15 08:52 | disposition home or self-care (01) ==
LOC: EN 06:19 → AC 06:21
PROVIDERS: PCP Physician Assistant; Referring Provider Surgery; Visit Provider Surgery
PROC: 0DJD8ZZ Inspection of Lower Intestinal Tract, Via Natural or Artificial Opening Endoscopic (ICD-10-PCS; CPT 45378; principal; 2022-11-15 07:25)
DX: D12.5 Benign neoplasm of sigmoid colon (principal); K57.30 Diverticulosis of large intestine without perforation or abscess without bleeding; D12.4 Benign neoplasm of descending colon; D12.0 Benign neoplasm of cecum; K64.1 Second degree hemorrhoids; F17.210 Nicotine dependence, cigarettes, uncomplicated
CPT/HCPCS: 45380; 45385; 88305; 93005; J7120

== ENCOUNTER 2022-11-21 14:52 | Observation (INO) | payer OTHER, MEDICARE, SELFPAY ==
[2022-11-21] VITALS (14 sets, daily range): BP systolic 99–138; BP diastolic 64–84; PULSE 61–80; RESP 16–18; TEMP 36.1–36.9; O2SAT 91–99; BMI 23.2
--- NOTE | 2022-11-21 | GALL_PTH ---
PATIENT: JAZ VALENTINE LOC: MS3 U#:[id number] AGE/SX: 76/M ROOM: [facility] RE11/21/[address]: Dr. Manuel Ibarra MD : [id number] BED: 1 DIS: 11/22/2022 SPEC #: [id number] RECD: 11/21/22 16:42 STATUS: BALJINDER KRISHNAN #: [id number] CLARITZA: 11/21/22 00:[address]: Manuel Ibarra DEPT: SURGICAL PATHOLOGY RECD BY: Byron Walker ENTERED: 11/22/22 09:49 SP TYPE: REBEKA PALOMINO DR: MARCELINA Morales Tissues: Gallbladder, NOS Procedures: Surgery Specimen Level III HEADER OPERATION: Laparoscopic cholecystectomy with IOC PRE-OP DIAGNOSIS: Cholelithiasis with chronic cholecystitis, liver cyst, common bile duct dilatation, left flank pain, inguinal hernia of left side, abdominal pain TISSUE SUBMITTED: Gallbladder MICROSCOPIC DIAGNOSIS Gallbladder, cholecystectomy: Cholesterolosis, chronic cholecystitis and cholelithiasis. AM:agnieszka 11/25/2022 MICROSCOPIC DESCRIPTION Slides are reviewed. GROSS DESCRIPTION Received is one container labeled with the patient's name and designated gallbladder. The specimen consists of a gallbladder measuring 4.0 cm in length and up to 3.0 cm in diameter. The external surface is pink-coleman, smooth and glistening for the most part. Focally it is granular, hemorrhagic and contains cautery artifact. The gallbladder is distended with a yellowish, friable stone measuring 3.0 cm in greatest dimension. No bile is noted. The gallbladder wall measures up to 0.3 cm in thickness. A focal hemorrhagic area is noted at the fundus. Power House Engineer sections from the gallbladder and the cystic duct are submitted in two cassettes. / SJ:agnieszka 11/22/2022 TC:3 CPT: 80909
--- NOTE | 2022-11-21 10:46 | PCM.HP.BLA ---
History and Physical Date of Admission: 11/21/22 Visit Reasons:?Discuss? Lap Anjel Chief Complaint: DISCUSS LAP ANJEL Allergies No Known Allergies Allergy (Verified 10/31/22 13:54) PFSH Medical History? History of hiatal hernia History of steroid therapy Smoker Wears dentures Wears glasses Social History? Smoking Status:? Current every day smoker tobacco type: cigarettes alcohol intake:? current substance use type:? does not use HPI HPI HPI: 76-year-old gentleman.? I had an opportunity to meet him on October 10, 2022.? He was having left flank pain.? To help evaluate him on October 21, 2022 to get an MRCP on him.? That demonstrated intra and exophytic ductal dilatation with a 11 x 19.1 mm common bile duct stone.? Cholelithiasis also identified.? There is an hepatic cyst.? There is an indeterminant 2.5 x 2.2 x 2.1 cm round soft tissue focus within the mesentery left of the midline may reflect a splenule cannot exclude an isolated lymph node.? Subsequently at my request on October 31, 2022 the patient underwent an ERCP per Dr. Murphy Rowan.? Choledocholithiasis was indeed fine.? A large stone was identified.? Could not be fully removed.? A stent was left in position. When the patient initially presented to me he was complaining of the left leg pain.? Is not clear to me that the common bile duct stone is etiologic.? On CT scan the has a splenule in the mesentery I do not believe that that is the source of his discomfort either. My previous notes reflect the following. No Known Allergies Allergy (Unverified 10/10/22 08:59) PFSH Social History Smoking Status:? Current every day smoker alcohol intake:? current substance use type:? does not use HPI HPI HPI: 76-year-old gentleman who is being referred by Terence Hester PA-C for surgical consultation regarding abdominal pain and distention.? Written copy of my surgical consult recommendations will return to him.? In addition the patient has been having problems with an acute left flank pain.? Pain is said to be 9 out of 10.? At [facility] on September 20, 20[address] the patient had a CT scan the abdomen pelvis with contrast.? There is a cyst on the left lobe of the liver measuring 3.5 x 5 cm.? The right lobe has a 0.5 cm item too small to characterize.? The gallbladder is felt to possibly have a radiolucent stone.? The common bile duct is elevated in diameter to 1.4 cm.? There is a left adrenal nodule measuring 2.7 x 2.3 cm.? This is felt to be consistent with an adenoma.? There are atherosclerotic changes of the abdominal aorta.Diverticulosis of the descending and sigmoid colon noted.? Fat-containing umbilical hernia.? Fat-containing left inguinal hernia.? Prostate enlargement is noted.? There is posterior disc bulging at L3-4 and L4-5.? There is partially imaged lipoma in the musculature of the right hemipelvis and a lipoma in the musculature of the left gluteus myles muscle.? Subsequently on October 03, 2022 the patient had a right upper quadrant ultrasound.? A 2.6 cm stone is seen in the gallbladder.? The common bile duct measures 13 mm.? Medical renal disease is suspected.I have personally reviewed the images.? On CT the left inguinal hernia appears to contain fat and not bowel.? The pancreatic duct does not appear to be enlarged and the pancreas self does not appear to be large.? I am not seeing a mass in the head of the pancreas.? The common bile duct is certainly dilated. The patient states that when he stands that he notices bulging in the left mid abdomen to flank area.? When he walks he walks stooped over and this can cause a sharp pain but he can resolve it by sitting.? He denies fever or chills or sweats or nausea or vomiting or jaundice or change in urine or stool color or bright red blood per rectum or melena. He has been almost a lifelong cigarette smoker and he continues to smoke at the rate at least a pack per day. He claims he has had no history of weight loss.? No history of DVT.? He denies myocardial infarction or stroke. He has never had a colonoscopy.? He denies any family history of colon cancer. When he talks about the pain he points to the left mid abdomen slightly flank area to an area of diffuse bulging and he also points to the right lower quadrant area that has some very slight bulging. ROS General General: No weight change, appetite, fatigue, colon cancer, breast cancer or weakness HEENT HEENT: No difficulty swallowing, eye injury, eye surgery, swollen glands or hoarseness Endo Endocrine: No thyroid disease, diabetes mellitus, thyroid cancer, Hair loss, heat intolerance or cold intolerance Skin Skin: No rash or changing moles Breast Breast: No left breast lump, right breast lump, nipple discharge, breast pain, abnormal mammogram, abnormal US or breast enlargement Musc Musculoskeletal: No back problems, arthritis, rheumatoid arthritis, gout or joint pain Cardio Cardiovascular: No murmur, pacemaker, heart disease, atrial fibrillation, high blood pressure, heart attack, heart stent, palpitations, shortness of breat with exertion or chest pain Psych Psychiatric: No depression, anxiety or hearing voices Resp Respiratory: No shortness of breath, No sleep apnea, No cough, No COPD, No asthma, No emphysema and No wheezing Gastro Gastrointestinal: Yes abdominal pain, No nausea or vomiting, No diarrhea, No constipation, No blood in stool, No acid reflux, No hemorrhoids, No ulcers, Yes gallbladder problem and No black,tarry stools Pasquale Hematologic: No blood thinners, No blood disorders, No bleeding, No anemia and No blood clots Neuro Neurologic: No system reviewed and no additional complaints, except as documented, No as per HPI, No abnormal gait, No abnormal hearing, No abnormal movements, No abnormal speech, No behavioral changes, No burning sensations, No confusion, No convulsions, No disequilibrium, No dizziness, No localized weakness, No frequent falls, No headache(s), No lack of coordination, No loss of vision, No memory loss, No numbness, No other visual disturbances, No radicular pain, No restless legs, No sensory deficit, No syncope, No tingling, No tremor(s), No weakness and No other Exam Const General: cooperative, comfortable and no acute distress Nutritional Appearance: average body habitus Orientation: alert and awake Other: Heavy odor of tobacco HENMT Other: Tobacco staining of his mustache Eyes General: appearance normal, both eyes and all related structures Neck Other: Kyphosis noted Chest Other: Thoracic kyphosis noted, increased anterior posterior diameter Resp Auscultation: clear to auscultation bilaterally Other: Diminished respiratory excursion, clear Cardio Rate: regular rate Rhythm: regular rhythm Other: I do not detect a cardiac murmur GI Other: Patient was examined upright and supine, slight bulging of the left mid abdomen with a slight pendulous abdomen, no focal mass, no focal tenderness, bowel sounds present unremarkable, no hepatomegaly, no tenderness.? No rebound no guarding Other: Nontender left groin hernia detected but not the area of patient concern Skin General: no rashes or lesions noted Neuro General: patient alert, patient awake and patient oriented x3 Extrem General: no calf tenderness Psych Appearance: grossly normal Assessment and Plan Assessment and Plan (1) Cholelithiasis with chronic cholecystitis: ?Status:?Chronic (2) Liver cyst: ?Status:?Acute (3) Common bile duct dilatation: ?Status:?Acute (4) Left flank pain: ?Status:?Acute (5) Inguinal hernia of left side without obstruction or gangrene: ?Status:?Acute (6) Abdominal pain: The patient has had his colonoscopy. Multiple colonic polyps were identified fortunately all benign. He presents now for a laparoscopic cholecystectomy. He has a known common stone which at the moment could not be removed and Dr. Murphy Rowan placed a biliary stent. That will require additional treatment in the future. The patient's had an opportunity ask and have questions answered. We will proceed as noted. Manuel Ibarra M.D., F.A.C.S.
[2022-11-21] MEDS: Lactated Ringers 1,000 ML 15 ML IV (10:57)
[2022-11-21 11:10] LABS: Hematocrit 46.8 % (40-54); Mean Corp Hgb Conc 34.2 g/dL (32-36); Mean Corpuscular Hgb 32.3 pg (27.0-32.0); Mean Corpuscular Volume 94.4 fL (80-94); Mean Platelet Vol. 9.3 fl (6.2-12.0); Platelet Count 253 K/mm3 (150-450); RBC Distribution Width CV 15.3 % (11.6-14.6); RBC Distribution Width SD 52.8 fl (35.1-43.9); Red Blood Count 4.96 M/mm3 (4.6-6.2); White Blood Count 5.3 K/mm3 (4.4-11.0)
[2022-11-21 11:44] LABS: Anion Gap 4 (5-15); BUN 14 mg/dL (7-18); BUN/Creat Ratio 21.9 RATIO (10-20); Calcium,Total 8.6 mg/dL (8.5-10.1); Chloride 108 mmol/L (98-107); Creatinine, Serum 0.64 mg/dL (0.70-1.30); EST Glomerular Filtration Rate 130 mL/min (>60); Est Glom Filt Rate - Afr Amer 157 mL/min (>60); Estimated Creatinine Clearance 72.13 ml/min; Glucose 92 mg/dL (74-106); Sodium Level 140 mmol/L (136-145)
--- NOTE | 2022-11-21 12:28 | DCINST_ITS ---
Discharge Instructions Procedure General Surgery Diet Discharge Diet: Light diet - advance as tolerated (if you have questions about your diet instructions, please talk to you doctor.) Activity Discharge Activity: May Not Drive (for 3-5 days or while taking narcotic pain medicine.) May shower in (days): 1 Lifting Restrictions: 10 pounds Dressing / Incision Call your doctor if your incision/area has: Continuous Slow Oozing, Sudden Increased Bleeding, Increased Pain/ Swelling, Increased Redness and Foul Smelling Discharge Call your doctor if you observe: Fever of 101 or Higher Suture Line Care: Avoid Pulling/Pushing and Avoid Pinching/Bending Additional Dressing/Incision Instructions:: Change or remove dressing in 4 days. Leave steri-strips in place for 1 week. You may remove your drain dressing tomorrow and as long as the areas clean and dry you may shower pat the area dry and if need be reapply a Band-Aid to that drain site. Follow Up Care Please Follow Up With: Manuel Ibarra MD When: Call [phone] to make an appointment to be seen in about 10 days. Please also notify the office of requested appointment with Dr. Parish Rowan in approximately 6 weeks Test Results: Test results from this visit will be discussed in further detail at your follow- up appointment, if applicable. Discharge Plan Admission Primary Reason for Your Visit: Chronic cholecystitis and cholelithiasis with choledocholithiasis/stent Attending Provider: Manuel Ibarra Primary Care Provider: Terence Hester Discharge Orders/Prescriptions Prescriptions: New hydrocodone-acetaminophen 5-325 mg Tablet 1 - 2 tab PO Q4H PRN PRN (Reason: Pain Score 1-10/10) 2 Days Qty: 6 0RF Referrals / Follow Up: Terence Hester PA [Primary Care Provider] - Disposition Disposition (needs filled in before D/C Order can be placed): Home, Self Care
[2022-11-21] MEDS: Cefazolin 2 GM in 0.9% Normal Saline 100 ML IV (12:39)
--- NOTE | 2022-11-21 12:47 | RAD_ITS ---
CLINICAL HISTORY: Male, 76 years old. Biliary ductal dilatation. PROCEDURE: CHOLANGIOGRAM - intraoperative cholangiogram. FLUOROSCOPY TIME (if supplied): 38.1 seconds. Total exposure of 72.48 mGy. TECHNIQUE: Fluoroscopic guidance was provided during an intraoperative cholangiogram. 222 images were presented for documentation purposes. Findings refer to the operative report for further details. RAD/Cholangiogram/ O R,Initial IMPRESSION: Fluoroscopy provided in the OR during a intraoperative cholangiogram. Electronically Signed: Baudilio Puentes DO at 17:21 EDT ,
[2022-11-21] MEDS: Bupivacaine 0.25% 30 ML Vial (14:50)
--- NOTE | 2022-11-21 14:51 | OP.PCM_ITS ---
Report of Operation Date of Procedure: 11/21/22 Pre-Operative Diagnosis: Cholecystitis cholelithiasis choledocholithiasis Post-Operative Diagnosis: Severe chronic cholecystitis and cholelithiasis with associated choledocholithiasis and biliary stent in place Surgery/Procedure Performed:: Laparoscopic cholecystectomy with cholangiograms Description of Surgical Findings:: Timeout informed consent was obtained. 76-year-old gentleman was taken to the operating placed upon the table underwent general endotracheal ovation esthesia. Ancef 2 g were given intravenously. 0.5% Marcaine was used as a local anesthetic. Throughout the procedure a total of 30 cc was used. Skin sites were. Excised. A vertical infraumbilical incision was created holding sutures of 0 Vicryl placed varies needle inserted saline drop test performed the abdomen insufflated with CO2 to a pressure of 10 mmHg pressure. 12 mm trocar inserted. 10 mm laparoscope inserted under conversation 5 mm ports were placed in the epigastric mid abdomen right upper quadrant. Later in the case an additional right lateral upper quadrant port was placed for liver retractor. The gallbladder could not be immediately identified. The fundus of the gallbladder was completely flattened and decompressed and adherent omentum tediously of the omentum was bluntly and sharply dissected free until the gallbladder wall could actually be identified then this was traced to the fundus where it became that was on the very large completely obstructing inflamed stone with dense liver adherence. Tedious aqua dissection and blunt dissection was required. I made some progress but could not yet identify portal structures so then I did a retrograde approach. Took the dome of the gallbladder down using electrocautery significant amount inflammatory change was encountered a liver retractor was placed through the new right lateral upper quadrant port to help retain the liver and tediously the gallbladder was dissected free and doing so I had more mobility of the gallbladder was able to identify gallbladder peritoneum close to the infundibular area was able to bluntly dissect that free and then treat that with electrocautery and with the further dissection I was able to identify the cystic artery and the cystic duct. Cystic artery was clipped proximally and then transected with electrocautery. There were dense adhesions of the stone and infundibular area of the gallbladder to the liver and I had to tediously operated suction blunt dissection and fine electrocautery dissection dissect that free. The stent located within the proper hepatic duct was identified and carefully protected during this dissection. I then had the gallbladder finally freed from the liver with only the cystic duct remaining. Placed a Hem-o-shane clips on the cystic duct made an incision and retrograde milked back sludge and debris from the cystic duct. Placed a cholangiogram catheter. Fluoroscopically controlled cholangiograms were obtained demonstrated intra luminal common bile duct material I could see the stent with some difficulty I was able to get the contrast to go into the duodenum which could be visualized there was good hepatic ductal definition. No evidence of any contrast leakage. Cholangiogram catheter was removed and a Hem-o-shane clip placed on the cystic duct prior to transecting it. The gallbladder was placed in the retrieval bag. The right upper quadrant was irrigated irrigated and aspirated free of excess fluid. Fibrillar was placed in the liver bed. Through the right lateral port 15 round EVANS drain was shortened length and then placed at the subhepatic space. The drain was secured with 3-0 nylon. The abdomen sound deflate through an antiviral valve. The infraumbilical incision had to be increased inferiorly due to the size of the stone. The fascia was then approximated by first approximate the peritoneum to pleural hemostasis with a running 0 Vicryl and then the rectus fascia was approximated with an additional running 0 Vicryl's. Skin edges approximated opted for Monocryl subdermal stitches. Steri-Strips Telfa OpSite dressings applied. Sponge and instrument and needle counts were reported the surgeon to be correct. Specimens gallbladder. Drains 15 round EVANS. Blood loss 150 cc. He was taken to the recovery room in satisfactory addition without apparent complication. Because of the difficulty procedure he will be held for o bservation. Manuel Ibarra M.D., F.A.C.S. Surgeon: Manuel Ibarra Type of Anesthesia: General Anesthesiologist: Alon Bynum
[2022-11-21] MEDS: Lactated Ringers 1,000 ML 70 ML IV (17:48)
[2022-11-21] MEDS: Morphine 2 MG/ML Syringe IV (17:52)
[2022-11-21] MEDS: Acetaminophen 325 MG Tablet 650 MG PO (20:03)
[2022-11-21] MEDS: oxyCODONE 5 MG Tablet PO (21:50)
[2022-11-22] MEDS: Morphine 2 MG/ML Syringe IV (00:30)
[2022-11-22 01:08] VITALS: BP 131/72; PULSE 63; RESP 17; TEMP 36.9; O2SAT 93
[2022-11-22] MEDS: Acetaminophen 325 MG Tablet 650 MG PO (04:16)
[2022-11-22 04:53] VITALS: BP 131/72; PULSE 63; RESP 17; TEMP 36.9; O2SAT 93
--- NOTE | 2022-11-22 06:36 | PN.SURG_ITS ---
Subjective Subjective Patient doing well. He is transition to room air. He has tolerated some Jell- O. No flatus. Pain is tolerable at about 4-5. Objective Data Objective Data Vital Signs: Vital Signs Temp Pulse Resp BP Pulse Ox O2 Del Method O2 Flow Rate 98.4 F 63 17 131/72 H 93 Room Air 2 11/22/22 04:53 11/22/22 04:53 11/22/22 04:53 11/22/22 04:53 11/22/22 04:53 11/22/22 04:53 11/21/22 16:15 Oxygen Flow Rate (L/min) 2 Oxygen Delivery Method Room Air Weight: 176 lb 5.917 oz Body Mass Index (BMI) 23.2 Intake & Output: Intake and Output for Last 24 Hours 11/20/22 11/21/22 11/22/22 23:59 23:59 23:59 Intake Total 1230 / 1230 240 / 240 Output Total 554 / 554 742 / 742 Balance 676 / 676 -502 / -502 Lab / Micro Data Result Diagrams: 11/21/22 10:50 11/21/22 10:50 Labs: Laboratory Results - last 24 hr 11/21/22 10:50: WBC 5.3, RBC 4.96, Hgb 16.0, Hct 46.8, MCV 94.4 H, MCH 32.3 H, MCHC 34.2, RDW Std Deviation 52.8 H, RDW Coeff of Drew 15.3 H, Plt Count 253, MPV 9.3 11/21/22 10:50: Sodium 140, Potassium 4.0, Chloride 108 H, Carbon Dioxide 28.0, Anion Gap 4 L, BUN 14, Creatinine 0.64 L, Estim Creat Clear Calc 72.13, Est GFR (MDRD) Af Amer 157, Est GFR (MDRD) Non-Af 130, BUN/Creatinine Ratio 21.9 H, Glucose 92, Calcium 8.6 Radiography Diagnostic Testing: Radiology Impression Cholangiogram 11/21/22 12:47 IMPRESSION: Fluoroscopy provided in the OR during a intraoperative cholangiogram. Electronically Signed: Baudilio Puentes DO at 17:21 EDT Reading Location ID and State: [facility] / [place] Tel [phone], Service support , Physical Exam GI GI Narrative: Slightly distended, nontender, EVANS drain output appropriate minimal. Assessment & Plan Assessment/Plan (1) Cholelithiasis with chronic cholecystitis: PLAN: Severe chronic cholecystitis and cholelithiasis with dense adherence of the gallbladder to the liver bed successfully excised laparoscopically. Drain output appropriate for the procedure and the drain was removed today. Cholangiograms did demonstrate debris within the common bile duct around the previously placed stent. I anticipate ongoing requirement for the stent. Patient will be discharged with office follow-up with myself in future office follow-up with Dr. Parish Rowan regarding his biliary stent Manuel Ibarra M.D., F.A.C.S.
[2022-11-22 06:37] LABS: Absolute Lymphocyte Count 1.23 X10^3/uL (0.83-4.51); Absolute Neutrophil Count 6.3 X10^3/uL (2.0-7.7); Basophil# 0.02 X10^3/uL; Basophil% 0.2 % (0-1); Eosinophil# 0.02 X10^3/uL; Eosinophils% 0.2 % (0-5); Hematocrit 44.8 % (40-54); Hemoglobin 14.8 g/dL (13.0-16.5); Lymphocyte # 1.23 X10^3/ul (0.83-4.51); Lymphocyte % 14.4 % (19-41); Mean Corpuscular Hgb 31.4 pg (27.0-32.0); Mean Corpuscular Volume 94.9 fL (80-94); Mean Platelet Vol. 9.3 fl (6.2-12.0); Monocyte% 10.6 % (0-10); NRBC Flagged by Analyzer 0 % (0-5); Neutrophil # 6.31 X10^3/uL (2.7-7.7); Neutrophil % 74.1 % (47-70); Platelet Count 231 K/mm3 (150-450); RBC Distribution Width CV 15.3 % (11.6-14.6); RBC Distribution Width SD 54.2 fl (35.1-43.9); Red Blood Count 4.72 M/mm3 (4.6-6.2); White Blood Count 8.5 K/mm3 (4.4-11.0)
[2022-11-22 07:09] LABS: AST(SGOT) 97 U/L (15-37); Alanine Aminotransfer ALT/SGPT 81 U/L (16-61); Alkaline Phosphatase 52 U/L (45-117); Anion Gap 5 (5-15); BUN 10 mg/dL (7-18); BUN/Creat Ratio 14.3 RATIO (10-20); Calcium,Total 8.3 mg/dL (8.5-10.1); Chloride 106 mmol/L (98-107); EST Glomerular Filtration Rate 117 mL/min (>60); Est Glom Filt Rate - Afr Amer 141 mL/min (>60); Estimated Creatinine Clearance 72.13 ml/min; Glucose 126 mg/dL (74-106); Potassium 3.9 mmol/L (3.5-5.1); Sodium Level 138 mmol/L (136-145)
[2022-11-22 10:59] VITALS: O2SAT 93
== END 2022-11-22 11:14 | disposition home or self-care (01) ==
LOC: MS3 11-22 07:45 → SDC 11-22 10:07 → MS3 11-22 10:07
PROVIDERS: Physician Assistant; Admitting Provider Surgery; PCP Physician Assistant; Referring Provider Surgery; Visit Provider Surgery
PROC: (CPT 47610; principal; 2022-11-21 12:10)
DX: K80.64 Calculus of gallbladder and bile duct with chronic cholecystitis without obstruction (principal); I70.0 Atherosclerosis of aorta; E27.8 Other specified disorders of adrenal gland; K76.89 Other specified diseases of liver; K40.90 Unilateral inguinal hernia, without obstruction or gangrene, not specified as recurrent; F17.210 Nicotine dependence, cigarettes, uncomplicated; K42.9 Umbilical hernia without obstruction or gangrene; K57.30 Diverticulosis of large intestine without perforation or abscess without bleeding
CPT/HCPCS: 47563; 00790; 36415; 74300; 76000; 80048; 80053; 85025; 85027; 88304; 94668; 96374; 96376; 99221; 99252; J7120; G0378; G0463; J2405

== ENCOUNTER 2023-01-07 08:30 | Day surgery (SDC) | payer MEDICARE, SELFPAY ==
--- NOTE | 2023-01-07 08:41 | EKG12_ITS ---
Test Reason : PRE-OP Blood Pressure : / mmHG Vent. Rate : 070 BPM Atrial Rate : 076 BPM P-R Int : 182 ms QRS Dur : 154 ms QT Int : 454 ms P-R-T Axes : 049 -73 003 degrees QTc Int : 490 ms Sinus rhythm with Premature atrial complexes Right bundle branch block Left anterior fascicular block Bifascicular block Abnormal ECG When compared with ECG of 15-NOV-2022 07:06, Premature atrial complexes are now Present Confirmed by JIMBO FRENCH, DICK ([id number]), editorial manager EVELINE ARCE ([id number]) on 01/10/2023 8:16:59 AM Referred By: Terence Hester Confirmed By:DICK CHOI MD
--- NOTE | 2023-01-07 09:00 | RAD_ITS ---
STUDY: ERCP. REASON FOR EXAM: Male, 77 years old. ERCP WITH STENT REMOVAL -- unable to locate stent, removed stones FLUOROSCOPY TIME (if supplied): ( 3 minutes 11 seconds. ) minutes/seconds. 36.67 mGy. TECHNIQUE: An ERCP was performed by the surgeon. COMPARISON: None. FINDINGS: Dilated intra and extrahepatic biliary ducts. Multiple filling defects are seen in the common bile duct. No stent seen. RAD/ERCP Biliary Only IMPRESSION: Dilated ducts. Multiple filling defects in the common bile duct. The stent was not visualized. Electronically Signed: Samuel Damian MD at 13:05 EDT ,
[2023-01-07] MEDS: Lactated Ringers 1,000 ML 15 ML IV (09:05)
[2023-01-07 09:06] VITALS: BP 132/68; PULSE 63; RESP 16; TEMP 36.2; O2SAT 95; BMI 22.9
--- NOTE | 2023-01-07 09:39 | HP.PCM_ITS ---
HPI - General HPI Narrative JAZ VALENTINE, is a 77 M who presents for ERCP. Patient recently had ERCP with stent placement due to choledocholithiasis. Patient has no complaints at this time. He is here for stent removal and to attempt to remove the final fragments of the stone. [facility] Medical History Choledocholithiasis Common bile duct dilatation History of hiatal hernia Inguinal hernia of left side without obstruction or gangrene Left flank pain Liver cyst Smoker Wears dentures Wears glasses Home Medications ascorbic acid (vitamin C) 500 mg chewable tablet (Vitamin C) 500 mg PO DAILY 01/01/23 [History Last Taken Unknown] cholecalciferol (vitamin D3) 25 mcg (1,000 unit) tablet (Vitamin D3) 25 mcg PO DAILY 01/01/23 [History Last Taken Unknown] vitamin E 600 unit capsule 450 mg PO DAILY 01/01/23 [History Last Taken Unknown] zinc 50 mg capsule 50 mg PO DAILY 01/01/23 [History Last Taken Unknown] Allergy/AdvReac Type Severity Reaction Status Date / Time No Known Allergies Allergy Verified 01/07/23 09:05 Surgical History History of colonoscopy History of ERCP History of laparoscopic cholecystectomy Social History Smoking Status: Current every day smoker tobacco type: cigarettes alcohol intake: current substance use type: does not use Past Medical/Surgical History Planned Operation Planned Operative Procedure/s: ERCP STENT REMOVAL Previous Hospitalizations/Surgeries HX Hospitalizations: No Any Problems With Anesthesia: No You/Your Family Experience Fever (Hyperthermia) With Anes: No Cholinesterase deficiency: No Cardiovascular Hx Hypertension: No Respiratory Hx Sleep Apnea: No CPAP: No Hx Respiratory Tract Infection/Cold (presently): No Do You Snore Loudly (louder than talking or can be heard): No Do You Often Feel Tired/ Fatigued/ Sleepy Dring Daytime?: No Has Anyone Observed You Stop Breathing During Sleep?: No Result (for STOP score): Negative Smoking Status: Current every day smoker Neurological Does patient have nerve stimulator: No Miscellaneous Recent Exposure to Contagious Disease: No Allergies No Known Allergies Allergy (Verified 01/07/23 09:05) Discharge Is Pt Admitted From a Retirement, or a Alf: No After D/C, Where Do you Plan to Go: Return Home Vital Signs Vital Signs Vital Signs: 01/07/23 09:06 01/07/23 09:06 Temperature 97.2 F L Temperature Source Temporal Pulse Rate 63 Respiratory Rate 16 Respiratory Pattern Normal Blood Pressure 132/68 H Blood Pressure Mean 89 Blood Pressure Source Monitor Blood Pressure Position Semi-Fowlers Blood Pressure Location Left Arm Pulse Ox 95 Oxygen Delivery Method Room Air Weight Weight: 174 lb 2.643 oz Body Mass Index (BMI) 22.9 Physical Exam Const alert and oriented x3 HEENT normocephalic Eyes PERRL Resp normal respiratory effort and normal air movement Cardio regular rate and regular rhythm GI soft to palpation, non-tender and non-distended Extremity normal to inspection Assessment & Plan Assessment/Plan (1) Choledocholithiasis: PLAN: Patient had ERCP with stent placement a few weeks ago. He is here now for stent removal and to attempt to remove the remainder of the stone. If I am able to remove the stone fragments but I will not place a new stent but if I was unable to remove the entirety of the stone I will place a new stent and have him see Dr. Moore for lithotripsy. Murphy Rowan MD Pager: [facility] [address] [place] [address], [address] [place] [address] Office: Surgery Risks - Colonoscopy Risks Include but are not Limited To: Risks include but are not limited to: Bleeding, perforation requiring further surgery, inability to complete colonoscopy requiring barium enema.
--- NOTE | 2023-01-07 10:36 | OP.ERCP_ITS ---
Patient Name: Kan Wiggins Procedure Date: 01/07/2023 9:50 AM Date of : 1945 Age: 77 Procedure: ERCP Indications: Common bile duct stone(s) Providers: Murphy Rowan MD Referring MD: Murphy Rowan MD Medicines: General Anesthesia Patient Profile: This is a 77 year old male. Refer to note in patient chart for documentation of history and physical. Complications: No immediate complications. Estimated blood loss: Minimal. Procedure: Pre-Anesthesia Assessment: - Prior to the procedure, a History and Physical was performed, and patient medications and allergies were reviewed. The patient's tolerance of previous anesthesia was also reviewed. The risks and benefits of the procedure and the sedation options and risks were discussed with the patient. All questions were answered, and informed consent was obtained. Prior Anticoagulants: The patient has taken no previous anticoagulant or antiplatelet agents. After reviewing the risks and benefits, the patient was deemed in satisfactory condition to undergo the procedure. After obtaining informed consent, the scope was passed under direct vision. Throughout the procedure, the patient's blood pressure, pulse, and oxygen saturations were monitored continuously. The Duodenoscope was introduced through the mouth, and advanced to the duodenum and used to inject contrast into the bile duct. The ERCP was accomplished without difficulty. The patient tolerated the procedure well. Scope In: 10:10:08 AM Scope Out: 10:26:31 AM Total Procedure Duration Time 0 hours 16 minutes 23 seconds Findings: The stent was not present in the bile duct. A 0.035 inch x 260 cm straight Dreamwire was passed into the biliary tree. The sphincterotome was passed over the guidewire and the bile duct was then deeply cannulated. Contrast was injected. The lower third of the main bile duct contained filling defect(s) thought to be a stone. The biliary tree was swept with a 15 mm balloon and basket starting at the bifurcation. All stones were removed. Impression: - A filling defect consistent with a stone was seen on the cholangiogram. - Choledocholithiasis was found. Complete removal was accomplished by balloon extraction. - The biliary tree was swept. Recommendation: - Discharge patient to home. - Resume previous diet. - Continue present medications. Procedure Code(s): --- Professional --- 15216, Endoscopic retrograde cholangiopancreatography (ERCP); with removal of calculi/debris from biliary/pancreatic duct(s) Diagnosis Code(s): --- Professional --- K80.50, Calculus of bile duct without cholangitis or cholecystitis without obstruction R93.2, Abnormal findings on diagnostic imaging of liver and biliary tract CPT copyright 2017 [employer]. All rights reserved. The codes documented in this report are preliminary and upon brick dropper review may be revised to meet current compliance requirements. Murphy Rowan MD 01/07/2023 10:36:15 AM This report has been signed electronically. Number of Addenda: 0 Note Initiated On: 01/07/2023 9:50 AM
--- NOTE | 2023-01-07 10:37 | OP.CCLET_ITS ---
01/07/2023 Arpit Morales Re : ERCP procedure for Kan Wiggins Dear Mir This procedure was performed on Saturday, January 07, 2023. My impressions and recommendations are as follows: Impressions : - A filling defect consistent with a stone was seen on the cholangiogram. - Choledocholithiasis was found. Complete removal was accomplished by balloon extraction. - The biliary tree was swept. Recommendations : - Discharge patient to home. - Resume previous diet. - Continue present medications. My findings are described in the full procedure note, which is enclosed. If I can be of further assistance, please feel free to contact me at Doctor phone number(s): , Work: . Sincerely, Murphy Rowan MD 01/07/2023 10:36:15 AM This report has been signed electronically.
[2023-01-07 10:42] VITALS: BP 132/68; PULSE 84; RESP 16; TEMP 35.8; O2SAT 97
[2023-01-07 10:45] VITALS: BP 132/68; BP 138/76; PULSE 78; RESP 16; O2SAT 96
[2023-01-07 11:00] VITALS: BP 132/68; BP 137/75; PULSE 67; RESP 16; O2SAT 97
[2023-01-07 11:01] VITALS: BP 132/68; BP 146/72; PULSE 70; RESP 16; TEMP 35.7; O2SAT 95
--- NOTE | 2023-01-07 11:20 | RAD_ITS ---
STUDY: X-RAY - ABDOMEN/PELVIS REASON FOR EXAM: Male, 77 years old. Check for migrated biliary stent TECHNIQUE: Single AP view of the abdomen / pelvis. COMPARISON: None. FINDINGS: Mild increased markings are seen at the left lung base suggestive of atelectasis and/or scarring. Contrast is seen in the intrahepatic biliary ducts as well as the common bile duct. There is dilatation of the common bile duct and central intrahepatic biliary ducts. No biliary stent is seen. The visualized liver, spleen and kidneys are grossly normal in size and morphology. Normal soft tissue structures. There are diffuse degenerative changes of the visualized lumbar spine. RAD/Abdomen Single View IMPRESSION: No biliary stent is seen in the right upper quadrant. Electronically Signed: Samuel Damian MD at 12:15 EDT ,
[2023-01-07 11:45] VITALS: BP 132/68
== END 2023-01-07 11:50 | disposition home or self-care (01) ==
LOC: EN 08:31 → AC 08:33
PROVIDERS: PCP Physician Assistant; Referring Provider Physician Assistant; Visit Provider Surgery
PROC: (CPT 43260; principal; 2023-01-07 09:40)
DX: K80.50 Calculus of bile duct without cholangitis or cholecystitis without obstruction (principal); F17.210 Nicotine dependence, cigarettes, uncomplicated; R93.2 Abnormal findings on diagnostic imaging of liver and biliary tract
CPT/HCPCS: 43264; 74018; 74328; 76000; 93005; J7120; J2405

== ENCOUNTER → 2023-04-11 | Outpatient (CLI) | payer OTHER, MEDICARE, SELFPAY ==
--- NOTE | 2023-04-11 09:57 | US_ITS ---
STUDY: ABDOMINAL ULTRASOUND - RIGHT UPPER QUADRANT REASON FOR VISIT: Male, 77 years old Abdominal pain -- Eval for stones within the common bile duct TECHNIQUE: Ultrasound evaluation of the right upper quadrant was performed with real-time and static holcomb-scale imaging. TECHNICAL QUALITY: Adequate. COMPARISON: None. FINDINGS: Liver: The liver measures 16.1 cm. There is a heterogeneous echogenicity of the liver. The bile ducts are within normal limits. There is hepatic color flow. The direction of portal flow is hepatopetal. There is a 3.6 cm x 4.4 cm x 3.6 cm cyst in the left lobe of the liver. Gallbladder: The patient is status post cholecystectomy. Common Bile Duct (C.B.D.): The common bile duct was not well seen due to overlying bowel gas. No definite biliary stent is present. Pancreas: Normal size of the head, body and tail of the pancreas. There is normal echogenicity of the pancreas. There is no demonstrated pancreatic mass or cyst. Right Kidney: Normal size of the right kidney. The right kidney measures 11.2 cm x 5.1 cm x 5.5 cm. Normal renal cortex. The right cortex measures 1.4 cm. There is no demonstrated renal mass or cyst. There is mild hydronephrosis of the right kidney. US/Gallbladder IMPRESSION: Status post cholecystectomy. No definite intrahepatic biliary stent is seen. Cyst is seen in the left lobe of the liver. Mild degree of right hydronephrosis. Electronically Signed: Samuel Damian MD at 14:13 EDT ,
[2023-04-11 10:29] LABS: Absolute Lymphocyte Count 1.89 X10^3/uL (0.83-4.51); Absolute Neutrophil Count 3.4 X10^3/uL (2.0-7.7); Basophil# 0.02 X10^3/uL; Basophil% 0.3 % (0-1); Eosinophil# 0.09 X10^3/uL; Eosinophils% 1.5 % (0-5); Hematocrit 46.3 % (40-54); Hemoglobin 15.5 g/dL (13.0-16.5); Lymphocyte # 1.89 X10^3/ul (0.83-4.51); Mean Corp Hgb Conc 33.5 g/dL (32-36); Mean Corpuscular Hgb 31.3 pg (27.0-32.0); Mean Corpuscular Volume 93.3 fL (80-94); Mean Platelet Vol. 9.5 fl (6.2-12.0); Monocyte# 0.72 X10^3/uL; Monocyte% 11.8 % (0-10); NRBC Flagged by Analyzer 0 % (0-5); Neutrophil # 3.36 X10^3/uL (2.7-7.7); Neutrophil % 55.2 % (47-70); Platelet Count 229 K/mm3 (150-450); RBC Distribution Width CV 15.7 % (11.6-14.6); RBC Distribution Width SD 53.6 fl (35.1-43.9); Red Blood Count 4.96 M/mm3 (4.6-6.2); White Blood Count 6.1 K/mm3 (4.4-11.0)
[2023-04-11 11:02] LABS: ALB/GLOB Ratio 1.1 RATIO (0.9-2.4); AST(SGOT) 22 U/L (15-37); Alanine Aminotransfer ALT/SGPT 22 U/L (16-61); Albumin, Serum 3.4 g/dL (3.2-5.0); Alkaline Phosphatase 53 U/L (45-117); Anion Gap 5 (5-15); BUN 11 mg/dL (7-18); BUN/Creat Ratio 17.8 RATIO (10-20); Calcium,Total 8.4 mg/dL (8.5-10.1); Chloride 109 mmol/L (98-107); Creatinine, Serum 0.62 mg/dL (0.70-1.30); EST Glomerular Filtration Rate 134 mL/min (>60); Est Glom Filt Rate - Afr Amer 163 mL/min (>60); Globulin 3.2 g/dL (2.2-4.2); Glucose 91 mg/dL (74-106); Protein, Total 6.6 g/dL (6.4-8.2); Sodium Level 141 mmol/L (136-145)
== END | disposition home or self-care (01) ==
LOC: US 09:47
PROVIDERS: PCP Physician Assistant; Referring Provider Physician Assistant; Visit Provider Physician Assistant
DX: R10.9 Unspecified abdominal pain (principal)
CPT/HCPCS: 36415; 76705; 80053; 85025

== ENCOUNTER 2023-05-19 07:48 | Day surgery (SDC) | payer OTHER, MEDICARE, SELFPAY ==
[2023-05-19] VITALS (8 sets, daily range): BP systolic 128–145; BP diastolic 71–83; PULSE 55–91; RESP 16–17; TEMP 36.2–36.6; O2SAT 92–97; BMI 21.2
[2023-05-19] MEDS: Lactated Ringers 1,000 ML 15 ML IV ×2 (08:30→13:02)
--- NOTE | 2023-05-19 09:35 | HP.PCM_ITS ---
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 Is patient in pain?: No Allergies No Known Allergies Allergy (Verified 04/24/23 08:48) Medications ascorbic acid (vitamin C) 500 mg chewable tablet (Vitamin C) 500 mg PO DAILY 01/01/23 [History Confirmed 04/24/23] cholecalciferol (vitamin D3) 25 mcg (1,000 unit) tablet (Vitamin D3) 25 mcg PO DAILY 01/01/23 [History Confirmed 04/24/23] vitamin E 600 unit capsule 450 mg PO DAILY 01/01/23 [History Confirmed 04/24/23] zinc 50 mg capsule 50 mg PO DAILY 01/01/23 [History Confirmed 04/24/23] [facility] Medical History Abdominal pain Choledocholithiasis Common bile duct dilatation History of hiatal hernia Inguinal hernia of left side without obstruction or gangrene Left flank pain Liver cyst Smoker Wears dentures Wears glasses Surgical History History of colonoscopy History of ERCP History of laparoscopic cholecystectomy Social History Smoking Status: Current every day smoker tobacco type: cigarettes alcohol intake: current substance use type: does not use HPI HPI HPI: The patient is a 77-year-old male following up after being seen about 10 days ago. Patient reports that he has been using a cane which helped a little bit but he is still having left groin pain. He denies nausea or vomiting. ROS General General: No weight change or fatigue HEENT HEENT: No difficulty swallowing Endo Endocrine: No thyroid disease Musc Musculoskeletal: No back problems or arthritis Cardio Cardiovascular: No pacemaker, heart disease, atrial fibrillation, high blood pressure, heart attack, heart stent, palpitations or chest pain Psych Psychiatric: No depression or anxiety Resp Respiratory: No shortness of breath, No cough, No COPD, No asthma and No emphysema Gastro Gastrointestinal: No abdominal pain, No nausea or vomiting, No diarrhea, No constipation, No blood in stool, No acid reflux, No hemorrhoids, No ulcers, No gallbladder problem and No black,tarry stools Pasquale Hematologic: No blood thinners Exam Const General: cooperative Orientation: alert and oriented x3 HENMT Head: normal to inspection Neck Neck: normal visual inspection and full ROM Chest Chest palpation & inspection: normal inspection of the chest Resp Effort & Inspection: normal respiratory effort Auscultation: clear to auscultation bilaterally Cardio Rate: regular rate Rhythm: regular rhythm GI Inspection: non-distended Palpation: soft and nontender Skin General: no rashes or lesions noted Neuro General: patient alert and patient oriented x3 Extrem General: full ROM Psych Appearance: grossly normal Mental Status: mental status grossly normal Assessment and Plan Assessment and Plan (1) Left inguinal hernia: Status: Acute (2) Left groin pain: Status: Acute Plan Patient continues to have left pain even after stopping working. He says that using a cane is helping. The patient and his are still convinced that the pain is possibly due to the hernia. I did receive the report from his prior CT scan showed a left inguinal hernia containing fat. I will repair this form and see if this helps with his pain. I did discuss with him that it may not. They would still like to proceed. I discussed robotic assisted laparoscopic left inguinal hernia repair with mesh. I discussed repairing the contralateral side if there is a hernia present and he would like that repaired if there is a hernia. I discussed the risks including but not limited to bleeding, infection, injury to other organs such as the bowel, bladder, ureter. Patient understands the risks and is willing to proceed. Murphy Rowan MD Pager: [facility] [address] [place] [address], [address] [place] [address] Office: I have examined the patient and the H&P has been reviewed. There are no clinical changes since date of exam.
[2023-05-19] MEDS: Cefazolin 2 GM in 0.9% Normal Saline (100mL Bag) 100 ML IV (10:07)
--- NOTE | 2023-05-19 11:41 | PCM.OPRPT ---
Report of Operation Date of Procedure: 05/19/23 Pre-Operative Diagnosis: Left inguinal hernia Post-Operative Diagnosis: Bilateral inguinal hernias Surgery/Procedure Performed:: Robotic assisted laparoscopic bilateral inguinal hernia repair with mesh Type of Anesthesia: General/Regional Estimated Blood Loss (mL): 10 Description of Procedure: Patient was brought back to the operating room and general anesthesia was induced. The abdomen was prepped and draped in usual sterile fashion. A midline incision was made superior to the umbilicus and the fascia was grasped and elevated. A Veress needle was placed into the abdomen and a drop test was performed. The abdomen was then insufflated 15 mmHg. The needles were removed and a port was placed. The camera was placed into the abdomen and was inspected for injuries and there were no injuries from entry. Patient was placed in Trendelenburg position and the pelvis was examined. The patient appeared to have bilateral indirect inguinal hernias and bilateral femoral hernias. As the left side was more symptomatic this was addressed first. An incision was made in the peritoneum in the left lower quadrant and this was deepened to the hernia sac using electrocautery dissection. The indirect inguinal hernia sac was reduced and then the femoral hernia was reduced and dissection was carried inferiorly. Next a large piece of ProGrip mesh was unfolded over both hernias overlapping the midline. Next the peritoneum was reapproximated using a running 3 OV lock. The peritoneum completely cover the mesh. Next attention was paid to the right side. In the same fashion an inguinal incision was made in the peritoneum using electrocautery scissors. Dissection was carried inferiorly and both hernias were able to be reduced. A large piece of ProGrip mesh was placed over both inguinal hernia and femoral hernia on the right. The peritoneum was then reapproximated using a running 3 oh V-Loc suture. This completely cover the mesh on the side. Both meshes overlapped at the pubic symphysis. The instruments were removed and the robot was undocked. The abdomen was desufflated. The ports were removed. All of the incisions were injected with local anesthetic and closed with interrupted 4-0 Monocryl suture. Steri-Strips and bandages were applied. Scrotum was checked in the end of the case and contain both testicles. The patient was brought to PACU in stable condition. Grafts/Implants Used: ProGrip mesh bilateral groins Admit VTE Documentation VTE Mechan Device Prophylaxis: SCD's
--- NOTE | 2023-05-19 11:45 | DCINST_ITS ---
Discharge Instructions Procedure Hernia Diet Discharge Diet: Light diet - advance as tolerated Activity Discharge Activity: May Not Drive (for 2-3 days or while taking narcotic pain meds.) and May Shower (with the bandage in place 1-2 days after surgery.) Lifting Restrictions: 20 pounds for 4 weeks. Additional Activity Instructions:: Climbing stairs is fine, walking is encouraged. Sitting in bed may be uncomfortable. Sitting up using your lateral muscles (sitting up sideways) is usually more comfortable. Do not drive, work heavy equipment of sign legal documents for 24 hours. If your hernia repair was an inguinal repair, you may have scrotal swelling, an ice pack and/or athletic support can provide more comfort. Pain medications may cause nausea, you should typically eat light foods as you take your pain medications. Pain medications may also cause constipation. If you have difficulty with this, discuss with your doctor. Dressing / Incision Call your doctor if your incision/area has: Continuous Slow Oozing, Sudden Increased Bleeding, Increased Pain/ Swelling, Increased Redness and Foul Smelling Discharge Call your doctor if you observe: Fever of 101 or Higher Suture Line Care: Avoid Pulling/Pushing and Avoid Pinching/Bending Remove Dressing in: 2 days (Remove clear bandages in 2 days, remove Steri-Strips in 7 to 10 days.) Follow Up Care Please Follow Up With: Murphy Rowan MD When: Please call to schedule 2 week follow up appointment. [phone] Test Results: Test results from this visit will be discussed in further detail at your follow- up appointment, if applicable. Discharge Plan Admission Attending Provider: Murphy Rowan Primary Care Provider: Tabitha Caceres Instructions Additional Instructions / Restrictions: Ibuprofen for pain, oxycodone for breakthrough Discharge Orders/Prescriptions Prescriptions: New oxycodone 5 mg Tablet 5 - 10 mg PO Q4H PRN PRN (Reason: Pain Score 4-10/10) 5 Days Qty: 20 0RF No Action vitamin E 600 unit Capsule 450 mg PO DAILY ascorbic acid (vitamin C) [Vitamin C] 500 mg Tablet,Chewable 500 mg PO DAILY zinc 50 mg Capsule 50 mg PO DAILY cholecalciferol (vitamin D3) [Vitamin D3] 25 mcg (1,000 unit) Tablet 25 mcg PO DAILY Referrals / Follow Up: Caceres,Tabitha PA, PA-C [Primary Care Provider] - Disposition Disposition (needs filled in before D/C Order can be placed): Home, Self Care
[2023-05-19] MEDS: Bupivacaine Mpf 0.5% 30 ML VIAL (11:50)
[2023-05-19] MEDS: oxyCODONE 5 MG Tablet PO (13:30)
== END 2023-05-19 14:28 | disposition home or self-care (01) ==
LOC: SDC 07:50 → AC 07:50
PROVIDERS: PCP Physician Assistant; Visit Provider Surgery
PROC: (CPT 49650; principal; 2023-05-19 09:05)
DX: K40.20 Bilateral inguinal hernia, without obstruction or gangrene, not specified as recurrent (principal); F17.210 Nicotine dependence, cigarettes, uncomplicated
CPT/HCPCS: 49650; S2900; 00840; J7120; J2405

== ENCOUNTER 2024-12-29 07:48 | Emergency (ER) | payer OTHER, MEDICARE, SELFPAY ==
[2024-12-29 07:49] VITALS: BP 155/117; PULSE 88; RESP 18; TEMP 36.5; O2SAT 96; BMI 22.4
--- NOTE | 2024-12-29 08:17 | RAD_ITS ---
PROCEDURE: HAND MIN 3 VIEWS 12/29/2024 REASON FOR EXAM: TRAUMA Laceration. TECHNIQUE: 3 view(s) of the left hand COMPARISON: None FINDINGS: Bones: No fracture seen. Joints: Normal alignment. Mild degenerative changes. Soft tissues: Soft tissue swelling and laceration overlying the dorsal aspect of the metacarpals. Other: No radiopaque foreign body. RAD/Hand Min 3 Views IMPRESSION: Degenerative changes. Soft tissue swelling and laceration overlying the dorsal aspect of the metacarp als. Reading Location: [place] [address]
--- NOTE | 2024-12-29 08:18 | EX.ED.UPPERE ---
HPI History of Present Illness Chief Complaint: Laceration Narrative Narrative: 79-year-old male who denies significant past medical history presents with injury to his left hand that he sustained at work today. 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 He states that he went to reach for one of the bars that he usually straightens up with his left hand, and he had his foot on the pedal. He states that the machine will come down and pressed, but automatically lifts. His hand was not entrapped for an extended period of time. He sustained a laceration to the dorsum of his left hand. He denies other injuries. He is left-hand dominant. He is unsure of his last tetanus immunization. [facility] Medical History Abdominal pain Wears glasses Wears dentures History of hiatal hernia Smoker Choledocholithiasis Inguinal hernia of left side without obstruction or gangrene Left flank pain Common bile duct dilatation Liver cyst Home Medications ?Medication ?Instructions ?Recorded ?Last Taken ?Type ascorbic acid (vitamin C) 500 mg 500 mg PO DAILY 01/01/23 12/29/24 History chewable tablet (Vitamin C) cholecalciferol (vitamin D3) 25 25 mcg PO DAILY 01/01/23 12/29/24 History mcg (1,000 unit) tablet (Vitamin D3) vitamin E 600 unit capsule 450 mg PO DAILY 01/01/23 12/29/24 History zinc 50 mg capsule 50 mg PO DAILY 01/01/23 12/29/24 History ferrous sulfate 325 mg (65 mg 325 mg PO DAILY 12/29/24 Unknown History iron) tablet (FeroSul) glucosamine HCl 500 mg tablet 500 mg PO DAILY 12/29/24 Unknown History Allergy/AdvReac Type Severity Reaction Status Date / Time No Known Allergies Allergy Verified 12/29/24 07:51 Surgical History History of bilateral inguinal hernia repair S/P inguinal hernia repair History of laparoscopic cholecystectomy History of colonoscopy History of ERCP Social History Smoking Status: Current every day smoker tobacco type: cigarettes alcohol intake: current substance use type: does not use ROS ROS ED ROS Narrative Review of systems positive for crush injury to left hand. Laceration to dorsum of left hand. Denies other injury. No problem with movement of fingers. EXAM Physical Exam Narrative Exam Narrative: GCS 15. ABCs are intact. Cardiovascular examination regular rate and rhythm. Lungs clear to auscultation bilaterally. Abdomen soft and nontender with normoactive bowel sounds. Neurological examination nonfocal and nonlateralizing. Inspection of the left hand does reveal a 6 cm laceration across the dorsum of the left hand running obliquely. Palpable radial pulse. No active bleeding. Able to oppose thumb, left hand. Good capillary refill of fingers. Able to abduct and adduct fingers. Uninjured at the wrist and above. Const Vital Signs: 12/29/24 07:49 Temperature 97.7 F L Temperature Source Oral Pulse Rate 88 Respiratory Rate 18 Blood Pressure 155/117 H Blood Pressure Mean 129 Pulse Ox 96 Oxygen Delivery Method Room Air MDM MDM MDM Narrative Medical decision making narrative: Concern is for hand contusion versus open fracture/laceration of left hand. I reviewed his outpatient record and as his tetanus immunization is unknown, he was given Boostrix here in the emergency department intramuscularly. X-rays obtained of the left hand in 3 views and interpreted by myself independently. There is no evidence of acute fracture. I reviewed the radiology report which confirms my independent interpretation. Wound closure was performed on his skin tear of his left hand. He was told the risk of infection and scarring and the possibility that the sutures may rip through his thin skin. He acknowledges an understanding. See procedure note for detail. He was given Tylenol here. After wound closure and soaking, he was to report [facility] the [facility]. He was given today, the day of his injury off work and return to work tomorrow with limited use of his left hand and to keep the area clean dry and covered until suture removal in 7 to 10 days. He can return to full work after cleared by [facility] provider. Disposition is discharged home in stable condition. History & Record Review Discussion w/independent historian: Patient Procedures Lacerations Dorsum left hand: Length: 2.36 in Depth: Skin Shape: Linear (With slight irregularity, skin tear) Prep: Sterile Conditions and Shure-Clens Laceration repair: Irrigated, Lidocaine and Local Number of Sutures/[place]: 10 Suture Information: Ethilon and 5-0 (10 simple interrupted sutures placed after hand soaking.) Comment: Patient tolerated procedure well. Discharge Plan Triage Chief Complaint: Laceration ED Provider: Manny Dyer Dx/Rx/DC Orders Clinical Impression: Contusion of hand, left, Laceration of hand Instructions: ED Hand Contusion, ED Laceration, Hand: All Closures Prescriptions: No Action vitamin E 600 unit Capsule 450 mg PO DAILY ascorbic acid (vitamin C) [Vitamin C] 500 mg Tablet,Chewable 500 mg PO DAILY zinc 50 mg Capsule 50 mg PO DAILY cholecalciferol (vitamin D3) [Vitamin D3] 25 mcg (1,000 unit) Tablet 25 mcg PO DAILY ferrous sulfate [FeroSul] 325 mg (65 mg iron) tablet 325 mg PO DAILY glucosamine HCl 500 mg tablet 500 mg PO DAILY Rx Instructions: administer with a meal Primary Care Provider: Terence Hester Referrals: Terence Hester PA [Primary Care Provider] - Activity Restrictions/Additional Instructions: Have sutures removed by the [facility]/[employer] provider in 7 to 10 days. Return to the emergency department with drainage of pus from hand, red streak up your arm, fever, new or worsening symptoms. [id number] analgesics as needed for pain. Print Language: Albanian Disposition Disposition: Home, Self Care
[2024-12-29] MEDS: Diphth,Pertuss(Acell),Tet Vac 0.5 ML Vial IM (08:28)
[2024-12-29] MEDS: Lidocaine 1% (20 ml mdv) 20 ML Vial INFILT (09:27)
[2024-12-29] MEDS: Acetaminophen 325 MG Tablet 650 MG PO (09:58)
[2024-12-29 10:27] VITALS: BP 144/87; PULSE 75; RESP 17; TEMP 36.6; O2SAT 97
== END 2024-12-29 10:29 | disposition home or self-care (01) ==
PROVIDERS: Emergency Provider Emergency Medicine; PCP Physician Assistant; Visit Provider Emergency Medicine
DX: S60.222A Contusion of left hand, initial encounter (principal); S61.412A Laceration without foreign body of left hand, initial encounter; Z23 Encounter for immunization; F17.210 Nicotine dependence, cigarettes, uncomplicated; X58.XXXA Exposure to other specified factors, initial encounter
CPT/HCPCS: 12001; 73130; 90471; 90715; 99284